=== PATIENT | female | born 1965 | race Caucasian/White ===

== ENCOUNTER → 2016-02-28 | Outpatient (CLI) | payer MEDICARE ==
[~2016-02-28] MED LIST: ACETAMINOPHEN &1 TA1 PO; ALBUTEROL-200 PUFFS/ IH; ALBUTEROL2 PUFFS/17 IN; AMOXICILLIN 50500 MG PO; AMOXICILLIN500 M2 PO; ANAPROX DS550 MG PO; BENZONATATE100 MG PO; CIPRO 500MG TA500 MG PO; ETODOLAC400 MG PO; FLEXERIL10 MG PO; HYDROCODONE1 TABLET PO; LEVAQUIN 750 M750 MG PO; LORTAB 500 MG-11 TAB PO; MEDROL 4MG. DOSE4 MG PO; MOTRIN 600MG.600 MG PO; NAPROSYN 500MG500 MG PO; NAPROXEN SODIU500 MG PO; NIZORAL 2%15 GM/TUBE EX; PREDNISONE 10MG10 MG PO; PREDNISONE 20MG20 MG PO; PREDNISONE20 MG PO; PREDNISONE50 MG PO; SPIRIVA HA1 PUFF/INH IH; TESSALON PERLE100 M1 PO; TESSALON PERLE100 MG PO; TESSALON PERLE200 MG PO; TUSSIONEX PENNKI5 ML PO; VALIUM10 MG PO; ZITHROMAX 250M250 MG PO; ZITHROMAX Z PA250 MG PO; Zithromax500 MG PO
--- NOTE | 2016-02-28 10:33 | RADIOLOGY REPORT PS360 ---
CHEST(2 VIEWS-NOT PORTABLE) ORDERING PHYSICIAN : David Smyth MD PATIENT AGE: 50 years GENDER: Female INDICATION: COUGH, FEVER Cough fever. TECHNIQUE: PA and lateral chest COMPARISON: 07/17/2015 CXR FINDINGS Right middle lobe collapse and consolidation best appreciated on lateral view. Marked volume loss right heart border partially obscured on frontal projection Underlying chronic changes but slight coarsening markings bilaterally technique left infrahilar region. Cannot exclude minimal wispy infiltrate towards left lower lobe but I favor this is more likely stable. The upper lung diaz and apices appear stable and unchanged. Heart is normal in size. Lexi and mediastinal structures unchanged. No pleural effusion. IMPRESSION: 1. Right middle lobe consolidation Marked volume loss, with collapse at RML associated... 2. Upper normal markings left infrahilar region reflect central airway inflammatory changes. Question minimal wispy infiltrate left infrahilar area
== END ==
LOC: RAD 09:10
DX: R05 Cough (principal); R50.9 Fever, unspecified

== ENCOUNTER → 2016-03-31 | Outpatient (CLI) | payer MEDICARE ==
--- NOTE | 2016-03-31 12:30 | RADIOLOGY REPORT PS360 ---
CHEST(2 VIEWS-NOT PORTABLE) HISTORY: RML PNEUMONIA FU ORDERING PHYSICIAN: David Smyth MD PATIENT AGE: 50 years COMPARISON: 02/28/2016 FINDINGS: The cardiomediastinal silhouette and pulmonary vascularity are within normal limits. There is been marked interval improvement in the right middle lobe pneumonia. There does remain some residual increased density in the right middle lobe which could be due to postinflammatory fibrotic change/scarring or some residual infiltrate. No effusions. No new areas of consolidation. IMPRESSION: Marked improvement in right middle lobe pneumonia with mild residual density in the right middle lobe which could be related to some residual infiltrate/inflammatory change versus scarring.
== END ==
LOC: RAD 10:59
DX: J18.1 Lobar pneumonia, unspecified organism (principal)

== ENCOUNTER 2016-10-26 13:17 | Emergency (ER) | payer MEDICARE ==
[~2016-10-26] VITALS: Ht 162.6 cm; Wt 58.7 kg
[~2016-10-26 13:17] MED LIST changes: +LASIX 40MG. TAB40 MG PO; +PERCOCET1 TA1 PO
--- NOTE | 2016-10-26 13:43 | Urgent Treatment Center Report ---
History of Present Issue Date/Time Seen by Provider 10/26/16 1343 Visit Reason Pt arrived:Walked Presenting Problem:PT STATES SHE INJURED RT RING FINGER WHILE BOWLING LAST NIGHT Location if Accident:Public Bulding Onset of symptoms date/time:10/25/1612/01/1799 or onset unknown for: Have you (or family members/close friends) recently traveled outside the [place]? N If Yes, where/when: Have you had exposure to infectious disease within the past month? TB? Other? Specify: c/o pain right ring finger since last night. Reports she was bowling and when the ball left her hand, the pain started. Digits 2, 3, 4 were in the bowling ball holes "like they were supposed to be". pain worse this morning. "not severe but stiff and worse to move". Tender to touch. No N/T. Full ROM. Just left grocery and thought since daughter being seen, would be seen also. Source patient Exam Limitations no limitations ALLERGIES Coded Allergies: codeine (Mild, 07/31/15) Home Medications Active Scripts OXYCODONE HCL/ACETAMINOPHEN (Percocet 10-325 MG Tablet) 1 TAB PO Q6HP PRN PAIN #12 TAB Prov: 09/16/16 Reported Medications IBUPROFEN (Motrin 600MG) 800 MG PO TIDPRN HYDROCODONE/ACETAMINOPHEN (Hydrocodon-Acetaminophn 10-325) 1 TAB PO Q4HP PRN BACK PAIN Furosemide (Lasix 40MG) 40 MG PO DAILY History Medical History General CAD? No Angina: No Hypertension? No Hyperlipidemia? No CHF? No DVT? No PE? No COPD? Yes Asthma? Yes Anemia? No GERD? No Gastric ulcers? No GI Bleed? No Hernia? No Thyroid Problems? No Hypothyroidism? No CVA? No Seizures? No Renal Insuffiency? No UTI? No Stones? No BPH? No GB Disease: No Nephritic Syndrome? No Asplenia? No Hepatitis? No Sickle Cell Disease? No Arthritis? No Migraines? No Cataracts? No Glaucoma? No MRSA? No HIV? No TB? No Anxiety? No Depression? No More? No Immunization HX DT/Tetanus 1-4 Years Ago Flu 2014-16FSN Pneumonia Received In Past Surgical Hx Previous Surgery?Y Hysterectomy OVARIAN CYSTS TUBAL R KNEE Family History Family HX Diabetes Yes CAD Yes Hypertension No Hyperlipidemia No Cancer Yes TB No Social History Smoking Hx Smoker: Current Every Day Smoker Tobacco: Yes Type Cigarettes Packs/day < 1 Pack Alcohol Alcohol: No Review of Systems All Other Systems Reviewed and Negative Constitutional denies fever, denies malaise, denies weakness Musculoskeletal see HPI, denies joint swelling, denies other (wrist of arm pain) Skin denies change in color, denies lesions, denies lumps Psychiatric/Neurological see HPI Physical Exam Vital Signs Vital Signs Date Time Temp Pulse Resp B/P Pulse O2 O2 Flow FiO2 Ox Delivery Rate 10/26 1459 98.1 73 18 106/61 98 10/26 1339 98.1 73 18 106/61 98 General Appearance normal appearance, no apparent distress Respiratory Status No: respiratory distress. Cardiovascular no peripheral edema Peripheral Pulses Pulses normal Yes (radial) Extremities normal range of motion (right digits, right wrist), normal inspection (right hand, wrist), mild tenderness right 2, 3, 4 MCP and proximal phalanx only Neurologic alert, no motor/sensory deficits, oriented x 3 Skin normal color, warm/dry Medical Decision Making LABS/Meds/Orders Pt receiving controlled substance in ED? No Results/Orders Orders Procedure Date/time Status HAND-RT 3 VIEWS 10/26 1327 Active XRAY/CT/US XRAY/CT/US XRAY hand (right) XR interpretation by reviewed by me (pt refuses to wait ) Xray Results prelim, no fracture seen Progress [facility] Progress Notes 1 Date 10/26/16 Time 1408 Comment Just left for xray [facility] Progress Notes 2 Date 10/26/16 Time 1446 Comment Still waiting to hear back from radiologist or DONAL Lu MD on a final xray result [facility] Progress Notes 3 Date 10/26/16 Time 1454 Comment Pt is wanting to leave. Doesn't want to wait any longer for final result on xray. Dr. Mai still not available and radiologist has agreed to look at it as soon as he is available. Pt aware but request to be discharged w/ prelim result and will call back later for final xray result. Pt has groceries in car and is worried about them ruining. Aware if fractured, could require different treatment but reports she will return if that is the case. Continues to decline medication for pain. Has 800mg ibuprofen at home "and I will just take that when I get home". Departure Departure Time of Disposition 1455 Disposition DC Home or Self Care(routine) Clinical Impression Primary Impression: Strain, MCP, hand, right Qualifiers: Encounter type: initial encounter Qualified Code: S66.811A - Strain of other specified muscles, fascia and tendons at wrist and hand level, right hand, initial encounter Condition STABLE Referrals NO REFERRAL Follow up with primary care for new, worsening or if symptoms not improved in 3- 5 days. May require referral to hand specialist if that is the case. Return to [facility] if unable to see PCP. Patient Instructions DI for Finger Sprain Additional Instructions * Rest * ice 15-20 mins 3-4 times a day * Elevate as discussed as much as possible to help reduce swelling and therefore , pain * Ibuprofen every 6 hours as needed for pain and inflammation. If you need something more, you can take tylenol every 4 hours as needed as long as your primary care provider has told you it is ok to take both. * Keep fingers moving. No movement can lead to more stiffness * Call Clinic at [phone] after 4pm for final xray result Discharge Counseling Counseled pt/family regarding diagnosis, test results, medications/RX, home care, follow up needs at [phone]
--- NOTE | 2016-10-26 13:43 | Urgent Treatment Center Report ---
History of Present Issue Date/Time Seen by Provider 10/26/16 1343 Visit Reason Pt arrived:Walked Presenting Problem:PT STATES SHE INJURED RT RING FINGER WHILE BOWLING LAST NIGHT Location if Accident:Public Bulding Onset of symptoms date/time:10/25/1612/01/1799 or onset unknown for: Have you (or family members/close friends) recently traveled outside the [place]? N If Yes, where/when: Have you had exposure to infectious disease within the past month? TB? Other? Specify: c/o pain right ring finger since last night. Reports she was bowling and when the ball left her hand, the pain started. Digits 2, 3, 4 were in the bowling ball holes "like they were supposed to be". pain worse this morning. "not severe but stiff and worse to move". Tender to touch. No N/T. Full ROM. Just left grocery and thought since daughter being seen, would be seen also. Source patient Exam Limitations no limitations ALLERGIES Coded Allergies: codeine (Mild, 07/31/15) Home Medications Active Scripts OXYCODONE HCL/ACETAMINOPHEN (Percocet 10-325 MG Tablet) 1 TAB PO Q6HP PRN PAIN #12 TAB Prov: 09/16/16 Reported Medications IBUPROFEN (Motrin 600MG) 800 MG PO TIDPRN HYDROCODONE/ACETAMINOPHEN (Hydrocodon-Acetaminophn 10-325) 1 TAB PO Q4HP PRN BACK PAIN Furosemide (Lasix 40MG) 40 MG PO DAILY History Medical History General CAD? No Angina: No Hypertension? No Hyperlipidemia? No CHF? No DVT? No PE? No COPD? Yes Asthma? Yes Anemia? No GERD? No Gastric ulcers? No GI Bleed? No Hernia? No Thyroid Problems? No Hypothyroidism? No CVA? No Seizures? No Renal Insuffiency? No UTI? No Stones? No BPH? No GB Disease: No Nephritic Syndrome? No Asplenia? No Hepatitis? No Sickle Cell Disease? No Arthritis? No Migraines? No Cataracts? No Glaucoma? No MRSA? No HIV? No TB? No Anxiety? No Depression? No More? No Immunization HX DT/Tetanus 1-4 Years Ago Flu 2014-16FSN Pneumonia Received In Past Surgical Hx Previous Surgery?Y Hysterectomy OVARIAN CYSTS TUBAL R KNEE Family History Family HX Diabetes Yes CAD Yes Hypertension No Hyperlipidemia No Cancer Yes TB No Social History Smoking Hx Smoker: Current Every Day Smoker Tobacco: Yes Type Cigarettes Packs/day < 1 Pack Alcohol Alcohol: No Review of Systems All Other Systems Reviewed and Negative Constitutional denies fever, denies malaise, denies weakness Musculoskeletal see HPI, denies joint swelling, denies other (wrist of arm pain) Skin denies change in color, denies lesions, denies lumps Psychiatric/Neurological see HPI Physical Exam Vital Signs Vital Signs Date Time Temp Pulse Resp B/P Pulse O2 O2 Flow FiO2 Ox Delivery Rate 10/26 1459 98.1 73 18 106/61 98 10/26 1339 98.1 73 18 106/61 98 General Appearance normal appearance, no apparent distress Respiratory Status No: respiratory distress. Cardiovascular no peripheral edema Peripheral Pulses Pulses normal Yes (radial) Extremities normal range of motion (right digits, right wrist), normal inspection (right hand, wrist), mild tenderness right 2, 3, 4 MCP and proximal phalanx only Neurologic alert, no motor/sensory deficits, oriented x 3 Skin normal color, warm/dry Medical Decision Making LABS/Meds/Orders Pt receiving controlled substance in ED? No Results/Orders Orders Procedure Date/time Status HAND-RT 3 VIEWS 10/26 1327 Active XRAY/CT/US XRAY/CT/US XRAY hand (right) XR interpretation by reviewed by me (pt refuses to wait ) Xray Results prelim, no fracture seen Progress [facility] Progress Notes 1 Date 10/26/16 Time 1408 Comment Just left for xray [facility] Progress Notes 2 Date 10/26/16 Time 1446 Comment Still waiting to hear back from radiologist or DONAL Lu MD on a final xray result [facility] Progress Notes 3 Date 10/26/16 Time 1454 Comment Pt is wanting to leave. Doesn't want to wait any longer for final result on xray. Dr. Mai still not available and radiologist has agreed to look at it as soon as he is available. Pt aware but request to be discharged w/ prelim result and will call back later for final xray result. Pt has groceries in car and is worried about them ruining. Aware if fractured, could require different treatment but reports she will return if that is the case. Continues to decline medication for pain. Has 800mg ibuprofen at home "and I will just take that when I get home". Departure Departure Time of Disposition 1455 Disposition DC Home or Self Care(routine) Clinical Impression Primary Impression: Strain, MCP, hand, right Qualifiers: Encounter type: initial encounter Qualified Code: S66.811A - Strain of other specified muscles, fascia and tendons at wrist and hand level, right hand, initial encounter Condition STABLE Referrals NO REFERRAL Follow up with primary care for new, worsening or if symptoms not improved in 3- 5 days. May require referral to hand specialist if that is the case. Return to [facility] if unable to see PCP. Patient Instructions DI for Finger Sprain Additional Instructions * Rest * ice 15-20 mins 3-4 times a day * Elevate as discussed as much as possible to help reduce swelling and therefore , pain * Ibuprofen every 6 hours as needed for pain and inflammation. If you need something more, you can take tylenol every 4 hours as needed as long as your primary care provider has told you it is ok to take both. * Keep fingers moving. No movement can lead to more stiffness * Call Clinic at [phone] after 4pm for final xray result Discharge Counseling Counseled pt/family regarding diagnosis, test results, medications/RX, home care, follow up needs at [phone]
[2016-10-26 14:59] VITALS: BP 106/61
--- NOTE | 2016-10-26 15:04 | RADIOLOGY REPORT PS360 ---
HAND-RT 3 VIEWS HISTORY: Pain following injury RT RING FINGER INJURY ORDERING PHYSICIAN: NOEMI WHITE APRN PATIENT AGE: 50 years COMPARISON: None FINDINGS: No fracture or dislocation. No lytic or blastic change. There is normal mineralization. The joint spaces are well-preserved. No significant degenerative/arthritic changes. No erosive changes evident. IMPRESSION: Negative, no acute finding
== END 2016-10-26 15:00 | disposition home or self-care (01) ==
LOC: UTC 13:17
DX: S66.911A Strain of unspecified muscle, fascia and tendon at wrist and hand level, right hand, initial encounter (principal); X50.9XXA Other and unspecified overexertion or strenuous movements or postures, initial encounter; Y93.54 Activity, bowling; Y92.39 Other specified sports and athletic area as the place of occurrence of the external cause; J44.9 Chronic obstructive pulmonary disease, unspecified; F17.210 Nicotine dependence, cigarettes, uncomplicated; Z79.899 Other long term (current) drug therapy

== ENCOUNTER → 2017-01-01 | Outpatient (CLI) | payer MEDICARE ==
--- NOTE | 2017-01-01 17:48 | RADIOLOGY REPORT PS360 ---
CT ABD PELVIS W/O CONTRAST HISTORY: HEMATURIA, RT FLANK PAIN Patient Age: 51 years: Female Ordering Physician: David Smyth MD TECHNIQUE: Helical CT scanning performed the abdomen pelvis with no oral nor IV contrast utilized COMPARISON :09/16/2016 CT abdomen pelvis FINDINGS Lower thorax. No acute findings. Subtle patchy groundglass opacities towards lower lung diaz bilaterally. Reflecting chronic changes and possibly chronic pneumonitis type picture. Underlying COPD/emphysema with some mild airway thickening noted at bases. Heart normal size. Abdomen pelvis. Lack of oral and IV contrast decreases sensitivity. tract. The prominent hydronephrosis seen at the left kidney on the previous 09/16/2016 study has shown improvement. There is still mild hydronephrosis but less pronounced today. Prominent extrarenal pelvis. This appear to be merely due to a left UPJ obstruction on the previous CT. Left ureter is 6 slight generous but normal size throughout its entire course. No ureteral calculi obstruction on left Again the patient right flank pain on today's study. The right kidney with stable appearance and mild extra renal pelvis on right. Unchanged. No urinary tract calculi on right. Could be some partial restriction of the right UPJ but no high-grade obstruction is seen on left. Urinary bladder is unremarkable. GI tract . No bowel dilatation or obstruction. Moderate stool throughout colon. Generous food moderate distending stomach. No evidence of appendicitis although appendix difficult to visualize I see no concerns in this regard. No free fluid nor free air in the abdomen or pelvis. The liver, spleen, pancreas unremarkable on this noncontrast study. Gallbladder. Contracted gallbladder with Possible sludge. No calcified stones. Adrenals unremarkable. Terminal Ileum appears normal . IMPRESSION: ------ . 1. Regarding right flank pain. Right kidney and collecting system unchanged. Mild extra renal pelvis on right again noted. No calculi. No inflammation. 2. Left kidney. 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 No urinary tract calculi Urinary bladder unremarkable 4. No acute findings abdomen pelvis. 5. Emphysematous changes lung bases.
== END ==
LOC: RAD 13:24
DX: R31.9 Hematuria, unspecified (principal); R10.9 Unspecified abdominal pain

== ENCOUNTER → 2017-01-05 | Outpatient (CLI) | payer MEDICARE ==
--- NOTE | 2017-01-05 15:58 | RADIOLOGY REPORT PS360 ---
CHEST(2 VIEWS-NOT PORTABLE) HISTORY: LEFT CHEST PLEURISY,COPD ORDERING PHYSICIAN: David Smyth MD PATIENT AGE: 51 years COMPARISON: 03/31/2016 FINDINGS: The cardiomediastinal silhouette and pulmonary vascularity are within normal limits. COPD. On the lateral view there is increased density overlying the anterior aspect of the chest along the inferior aspect of the anterior clear space. Has been previous consolidation in this region and this may be related to some postinflammatory fibrotic changes but was not quite as apparent on 03/31/2016. An area of recurrent pneumonia is considered.. The remaining lungs are clear. No acute bony anomalies. IMPRESSION: 1. COPD with patchy consolidation/pneumonia in the region of the lingula or right middle lobe..
== END ==
LOC: RAD 15:19
DX: R09.1 Pleurisy (principal); J44.1 Chronic obstructive pulmonary disease with (acute) exacerbation